=== PATIENT | male | born 1960 | race Caucasian/White ===

== ENCOUNTER 2017-03-12 11:19 | Emergency (ER) | payer BC ==
[~2017-03-12] VITALS: Ht 175.3 cm; Wt 86.0 kg
[2017-03-12 11:26] VITALS: BP 184/95; PULSE 101; RESP 16; TEMP 97.7; O2SAT 98
[2017-03-12] MEDS ORDERED: SIMV40TA PO (11:48)
[2017-03-12] MEDS ORDERED: SPIR25 PO (11:48)
[2017-03-12] MEDS ORDERED: WARF-23 PO (11:48)
[2017-03-12] MEDS ORDERED: CYCL10TA PO (11:48)
[2017-03-12] MEDS ORDERED: IVAB1.7T (11:48)
[2017-03-12] MEDS ORDERED: DAPA1TAB3 PO (11:48)
[2017-03-12] MEDS ORDERED: FENO160T PO (11:48)
[2017-03-12] MEDS ORDERED: ALPR0.5T3 PO (11:48)
[2017-03-12] MEDS ORDERED: FURO20TA PO (11:48)
[2017-03-12] MEDS ORDERED: GLIM4TAB PO (11:48)
[2017-03-12] MEDS ORDERED: INSU1INJ14 SQ (11:48)
[2017-03-12] MEDS ORDERED: HYDR50TA94 PO (12:05)
--- NOTE | 2017-03-12 12:06 | PD ---
HPI Chief Complaint: Oral / Dental Pain or Problem Time Seen by Provider: 12:06 Travel History International Travel<30 days: No Contact w/Intl Traveler<30days: No Traveled to known affect area: No History of Present Illness HPI 56-year-old male with history of anxiety visiting from [place] presents to the ED requesting medication refill his alprazolam. He reports the medication was lost in the mail. He also reports that he has pain in the left upper premolar region at the site of a dental abscess. denies fever, chills, chest pain, shortness of breath. symptom severity os mild no aggravating or alleviating factors. PFSH Past Medical History Cardiovascular Problems: Yes (CHF) Diabetes: Yes Patient Takes Glucophage: No Diminished Hearing: No Hypertension: Yes Tetanus Vaccination: < 5 Years Influenza Vaccination: No Past Surgical History Cardiac Surgery: Yes (defibrillator) Social History Alcohol Use: No (quit "30 years ago") Tobacco Use: No (quit 8 months ago) Substance Use: No Allergies-Medications (Allergen,Severity, Reaction): Coded Allergies: No Known Allergies (Unverified , 03/12/17) Reported Meds & Prescriptions Reported Meds & Active Scripts Active Hydroxyzine HCl 50 Mg Tab 50 Mg PO QID PRN 3 Days Reported Simvastatin 40 Mg Tab 40 Mg PO HS Fenofibrate 160 Mg Tab 200 Mg PO DAILY Tresiba Flextouch Pen Inj (Insulin Degludec Inj) 300 unit/3 ML Pen Unknown Dose SQ TID Tresiba Flextouch Pen Inj (Insulin Degludec Inj) 300 unit/3 ML Pen Unknown Dose SQ TID Glimepiride 4 Mg Tab 4 Mg PO BIDAC Farxiga (Dapagliflozin) 10 Mg Tab 10 Mg PO DAILY Warfarin 5 Mg Tab 5 Mg PO DAILY Aldactone (Spironolactone) 25 Mg Tab 25 Mg PO DAILY Furosemide 20 Mg Tab 20 Mg PO DAILY Flexeril (Cyclobenzaprine HCl) 10 Mg Tab 10 Mg PO TID Corlanor (Ivabradine) 5 Mg Tab Simvastatin 40 Mg Tab 40 Mg PO HS Alprazolam 0.5 Mg Tab 0.5 Mg PO BID PRN Review of Systems Except as stated in HPI: all other systems reviewed are Neg General / Constitutional: No: Fever Eyes: No: Visual changes HENT: No: Headaches Cardiovascular: No: Chest Pain or Discomfort Respiratory: No: Shortness of Breath Gastrointestinal: No: Abdominal Pain Genitourinary: No: Dysuria Musculoskeletal: No: Pain Skin: No Rash Physical Exam Narrative GENERAL: Alert well-appearing male. SKIN: Focused skin assessment warm/dry. HEAD: Atraumatic. Normocephalic. EYES: Pupils equal and round. No injection or drainage. ENT: No nasal bleeding or discharge. Mucous membranes pink and moist. No dental abscess. Gums are healthy appearing. NECK: Trachea midline. CARDIOVASCULAR: Regular rate and rhythm. No murmur appreciated. RESPIRATORY: No accessory muscle use. Clear to auscultation. Breath sounds equal bilaterally. GASTROINTESTINAL: Abdomen soft, non-tender, nondistended. Hepatic and splenic margins not palpable. MUSCULOSKELETAL: No obvious deformities. No clubbing. No cyanosis. No edema. NEUROLOGICAL: Awake and alert. No obvious cranial nerve deficits. Motor grossly within normal limits. Normal speech. PSYCHIATRIC: Appropriate mood and affect; insight and judgment normal. Data Data Last Documented VS Vital Signs Date Time Temp Pulse Resp B/P (MAP) Pulse Ox O2 Delivery O2 Flow Rate FiO2 03/12/17 11:26 97.7 101 16 184/95 (124) 98 Orders Orders Ed Discharge Order (03/12/17 12:06) MDM Medical Decision Making Medical Screen Exam Complete: Yes Emergency Medical Condition: Yes Differential Diagnosis Pain from healing dental abscess, medication refill, history of anxiety Narrative Course 56-year-old male with history of anxiety visiting from [place] presents to the ED requesting medication refill his alprazolam. He reports the medication was lost in the mail. He also reports that he has pain in the left upper premolar region at the site of a dental abscess. Patient is well-appearing. He was told his Xanax would not be refilled by the emergency department. He will be given a prescription for hydroxyzine which he can take for his anxiety until he follows up with his primary doctor. Diagnosis Primary Impression: Anxiety Additional Impression: Dentalgia Referrals: Primary Care Physician Additional Instructions: Follow-up with her primary doctor. Scripts Hydroxyzine HCl (Hydroxyzine HCl) 50 Mg Tab 50 MG PO QID Y for ANXIETY for 3 Days, TAB 0 Refills Prov: Jaimie Baig 03/12/17 Disposition: 01 DISCHARGE HOME Condition: Stable Jaimie Baig Mar 12, 2017 12:06
== END 2017-03-12 12:13 | disposition home or self-care (01) ==
LOC: PHEFT 11:19
DX: F41.9 Anxiety disorder, unspecified (principal); K08.89 Other specified disorders of teeth and supporting structures; I11.0 Hypertensive heart disease with heart failure; I50.9 Heart failure, unspecified; E11.9 Type 2 diabetes mellitus without complications; Z76.0 Encounter for issue of repeat prescription; Z79.899 Other long term (current) drug therapy; Z79.01 Long term (current) use of anticoagulants
CPT/HCPCS: 99281